=== PATIENT | male | born 1975 | race Caucasian/White ===

== ENCOUNTER → 2019-04-13 | Outpatient (CLI) | payer OTHER ==
[~2019-04-13] MED LIST: ACETAMINOPHEN500 MG PO; ARIP10 PO; ARIP30 PO; ASCO500 PO; ATOM25 PO; Augmentin 875-1 EACH PO; BENTYL; BENZ1 PO; CHLO100 PO; CHLO25A PO; CITA20 PO; CLIN300 PO; Celexa40 MG PO; Cipro500 MG PO; DIPH50; DIPH50 PO; ERGO50000 PO; FAMO40 PO; FERSU300 PO; Flagyl500 MG PO; GAVILAX17 GM PO; LORA.5 PO; OLAN10 PO; OXYACE5T PO; PERP8 PO; PRED20 PO; Percocet 5-3251 EACH PO; SERT100 PO; TAMS.4ER PO; [UNRECOGNIZED DRUG - OTHER]; [UNRECOGNIZED DRUG - OTHER] PO
[2019-04-13 20:50] LABS: U Amphetamine Screen Not Detected; U Barbituate Screen Not Detected; U Benzodiazapine Screen Not Detected; U Buprenorphine Screen Not Detected; U Cannabinoids Screen Not Detected; U Cocaine Screen Not Detected; U Methadone Screen Not Detected; U Methamphetamine Screen Not Detected; U Opiates Screen Not Detected; U Oxycodone Screen Not Detected; U Phencyclidine Screen Not Detected
[2019-04-13 20:51] LABS: U Propoxyphene Screen Not Detected
== END | disposition home or self-care (01) ==
LOC: LAB 13:50 → LAB SHORT 13:50
PROVIDERS: Registered Nurse Psychiatric/Mental Health
DX: Z51.81 Encounter for therapeutic drug level monitoring (principal); Z79.899 Other long term (current) drug therapy

== ENCOUNTER 2019-04-23 11:53 | Emergency (ER) | payer OTHER ==
[~2019-04-23] VITALS: Ht 182.9 cm; Wt 99.8 kg
[~2019-04-23 11:53] MED LIST changes: -ACETAMINOPHEN500 MG PO; -ASCO500 PO; -Augmentin 875-1 EACH PO; -Cipro500 MG PO; -ERGO50000 PO; -FAMO40 PO; -FERSU300 PO; -Flagyl500 MG PO; -GAVILAX17 GM PO; -PRED20 PO; -Percocet 5-3251 EACH PO; -TAMS.4ER PO
[2019-04-23 13:06] LABS: BASOPHILS ABSOLUTE AUTO 0.05 K/mm3 (0.00-0.23); BASOPHILS PERCENT AUTO 1 % (0-2); EOSINOPHILS ABSOLUTE AUTO 0.01 K/mm3 (0.00-0.68); EOSINOPHILS PERCENT AUTO 0 % (0-6); Hematocrit 40.9 % (37.0-53.0); Hemoglobin 13.9 g/dL (13.5-17.5); IMMATURE GRAN ABSOLUTE AUTO 0.06 K/mm3 (0.00-0.10); IMMATURE GRAN PERCENT AUTO 1 % (0-1); LYMPHOCYTES ABSOLUTE AUTO 1.05 K/mm3 (0.84-5.20); LYMPHOCYTES PERCENT AUTO 10 % (21-46); MONOCYTES ABSOLUTE AUTO 1.36 K/mm3 (0.16-1.47); MONOCYTES PERCENT AUTO 13 % (4-13); Mean Corpuscular HGB 29.8 pg (26.0-34.0); Mean Corpuscular Volume 88 fL (80-100); Mean Platelet Volume 9.5 fL (9.1-12.4); NEUTROPHILS ABSOLUTE AUTO 8.33 K/mm3 (1.96-9.15); NEUTROPHILS PERCENT AUTO 77 % (41-73); Platelet Count 319 K/mm3 (150-400); RDW Coefficient Variation 13.5 % (11.7-14.2); RDW Standard Deviation 43.8 fL (35.1-46.3); Red Blood Cell Count 4.66 M/mm3 (4.30-5.90); White Blood Cell Count 10.86 K/mm3 (4.00-11.30)
[2019-04-23 13:28] LABS: Alanine Aminotransfer (ALT/SGP 22 U/L (12-78); Albumin, Blood 3.3 g/dL (3.4-5.0); Albumin/Globulin Ratio 0.7 (0.8-1.8); Alk Phos 131 U/L (50-136); Anion Gap 10 mmol/L (6-16); Aspartate Aminotrans (AST/SGOT 19 U/L (12-37); Bilirubin, Total 0.4 mg/dL (0.1-1.0); Blood Urea Nitrogen 12 mg/dL (8-24); Bun/Creatinine Ratio 13.4 (12.0-20.0); CO2, Blood 21 mmol/L (21-32); Calcium, Blood 8.6 mg/dL (8.5-10.1); Chloride, Blood 102 mmol/L (98-108); Creatinine, Blood 0.89 mg/dL (0.60-1.20); Globulin, Blood 4.5 g/dL (2.2-4.0); Glomerular Filtration Rate >60 (60-); Glucose, Blood 105 mg/dL (70-99); Potassium, Blood 4.1 mmol/L (3.5-5.5); Sodium, Blood 133 mmol/L (136-145); Total Protein, Blood 7.8 g/dL (6.4-8.2)
[2019-04-23] MEDS ORDERED: SERT100 PO (14:03)
== END 2019-04-23 15:00 | disposition home or self-care (01) ==
LOC: ER 11:53
PROVIDERS: Emergency Medicine
DX: K59.00 Constipation, unspecified (principal); F32.9 Major depressive disorder, single episode, unspecified; F20.9 Schizophrenia, unspecified; Z88.1 Allergy status to other antibiotic agents; Z79.899 Other long term (current) drug therapy; Z87.891 Personal history of nicotine dependence
CPT/HCPCS: 36415; 74018; 80053; 83690; 85025; 99283-25

== ENCOUNTER 2019-05-02 14:00 | Emergency (ER) | payer OTHER ==
[~2019-05-02] VITALS: Ht 182.9 cm; Wt 99.8 kg
[2019-05-02 14:24] LABS: BASOPHILS ABSOLUTE AUTO 0.06 K/mm3 (0.00-0.23); BASOPHILS PERCENT AUTO 1 % (0-2); EOSINOPHILS ABSOLUTE AUTO 0.01 K/mm3 (0.00-0.68); EOSINOPHILS PERCENT AUTO 0 % (0-6); Hematocrit 36.8 % (37.0-53.0); Hemoglobin 12.4 g/dL (13.5-17.5); IMMATURE GRAN ABSOLUTE AUTO 0.06 K/mm3 (0.00-0.10); IMMATURE GRAN PERCENT AUTO 1 % (0-1); LYMPHOCYTES PERCENT AUTO 7 % (21-46); MONOCYTES ABSOLUTE AUTO 1.51 K/mm3 (0.16-1.47); MONOCYTES PERCENT AUTO 16 % (4-13); Mean Corpuscular HGB 29.3 pg (26.0-34.0); Mean Corpuscular HGB Conc 33.7 g/dL (31.5-36.5); Mean Corpuscular Volume 87 fL (80-100); Mean Platelet Volume 9.5 fL (9.1-12.4); NEUTROPHILS ABSOLUTE AUTO 7.37 K/mm3 (1.96-9.15); NEUTROPHILS PERCENT AUTO 76 % (41-73); Platelet Count 450 K/mm3 (150-400); RDW Coefficient Variation 13.8 % (11.7-14.2); RDW Standard Deviation 44.3 fL (35.1-46.3); Red Blood Cell Count 4.23 M/mm3 (4.30-5.90); White Blood Cell Count 9.71 K/mm3 (4.00-11.30)
[2019-05-02 14:38] LABS: International Normalized Ratio 1.19; Prothrombin Time Results 12.4 Sec (9.7-11.5)
[2019-05-02 14:43] LABS: Alanine Aminotransfer (ALT/SGP 128 U/L (12-78); Albumin, Blood 2.5 g/dL (3.4-5.0); Albumin/Globulin Ratio 0.5 (0.8-1.8); Alk Phos 120 U/L (50-136); Anion Gap 10 mmol/L (6-16); Aspartate Aminotrans (AST/SGOT 99 U/L (12-37); Bilirubin, Total 0.4 mg/dL (0.1-1.0); Blood Urea Nitrogen 11 mg/dL (8-24); Bun/Creatinine Ratio 13.6 (12.0-20.0); CO2, Blood 22 mmol/L (21-32); Calcium, Blood 8.5 mg/dL (8.5-10.1); Chloride, Blood 97 mmol/L (98-108); Creatinine, Blood 0.81 mg/dL (0.60-1.20); Globulin, Blood 4.8 g/dL (2.2-4.0); Glomerular Filtration Rate >60 (60-); Glucose, Blood 128 mg/dL (70-99); Magnesium, Blood 2.1 mg/dL (1.6-2.4); Potassium, Blood 3.7 mmol/L (3.5-5.5); Sodium, Blood 129 mmol/L (136-145); Total Protein, Blood 7.3 g/dL (6.4-8.2)
[2019-05-02] MEDS ORDERED: DIPH50 PO (14:57)
[2019-05-02 16:21] LABS: Source, Urine Clean Catch
[2019-05-02 16:29] LABS: Bilirubin, Urine Neg (Neg); Blood, Urine 1+ (Neg); Glucose Qualitative, Urine Neg (Neg); Ketones, Urine Neg (Neg); Leukocyte Esterase, Urine Neg (Neg); Nitrite, Urine Neg (Neg); Protein, Urine 2+ (Neg); Specific Gravity, Urine 1.005 (1.003-1.022); Urobilinogen, Urine 1+ (Normal); pH, Urine 6.5 (5.0-8.0)
[2019-05-02 16:35] LABS: Appearance, Urine Clear (Clear); Color, Urine Yellow (P-Yellow)
[2019-05-02 16:37] LABS: Bacteria Rare /hpf; Red Blood Cells, Urine Rare /hpf (0-2); Squamous Epithelial Cells Rare /hpf (Few); White Blood Cells, Urine Rare /hpf (0-5)
[2019-05-02 16:41] LABS: U Amphetamine Screen Not Detected; U Barbituate Screen Not Detected; U Benzodiazapine Screen Not Detected; U Buprenorphine Screen Not Detected; U Cannabinoids Screen Not Detected; U Cocaine Screen Not Detected; U Methadone Screen Not Detected; U Methamphetamine Screen Not Detected; U Opiates Screen Not Detected; U Oxycodone Screen Not Detected; U Phencyclidine Screen Not Detected; U Propoxyphene Screen Not Detected
[2019-05-02] MEDS ORDERED: Flagyl500 MG PO (16:44)
[2019-05-02] MEDS ORDERED: Cipro500 MG PO (16:44)
[2019-05-02] MEDS ORDERED: ACETAMINOPHEN500 MG PO (16:45)
[2019-05-02 18:52] LABS: Adenovirus F 40/41 Not Detected (NOT DETECT); Astrovirus Not Detected (NOT DETECT); Campylobacter Sp Not Detected (NOT DETECT); Cryptosporidium Not Detected (NOT DETECT); Cyclospora Cayetanensis Not Detected (NOT DETECT); E. Coli O157 Not Detected (NOT DETECT); Entamoeba Histolytica Not Detected (NOT DETECT); Enteroaggregative E. coli-EAEC Not Detected (NOT DETECT); Enteropathogenic E. coli-EPEC Not Detected (NOT DETECT); Enterotoxigenic E. coli-ETEC Not Detected (NOT DETECT); Giardia Lamblia Not Detected (NOT DETECT); Norovirus GI/GII Not Detected (NOT DETECT); Plesiomonas Shigelloides Not Detected (NOT DETECT); Rotavirus A Not Detected (NOT DETECT); Salmonella Sp Not Detected (NOT DETECT); Sapovirus Not Detected (NOT DETECT); Shiga Toxin-prod E. coli-STEC Not Detected (NOT DETECT); Shigella/Enteroin E. coli-EIEC Not Detected (NOT DETECT); Vibrio Cholerae Not Detected (NOT DETECT); Vibrio Sp Not Detected (NOT DETECT); Yersinia Enterocolitica Not Detected (NOT DETECT)
[2019-05-04 04:07] LABS: HBSAG SCREEN Negative (Negative); HEP A AB, IGM Negative (Negative); HEP B CORE AB, IGM Negative (Negative); HEP C VIRUS AB <0.1 (0.0-0.9)
== END 2019-05-02 16:57 | disposition home or self-care (01) ==
LOC: ER 14:00
PROVIDERS: Emergency Medicine; Physician Assistant
DX: K52.9 Noninfective gastroenteritis and colitis, unspecified (principal); R74.0 Nonspecific elevation of levels of transaminase and lactic acid dehydrogenase [LDH]; F32.9 Major depressive disorder, single episode, unspecified; F20.9 Schizophrenia, unspecified; Z79.899 Other long term (current) drug therapy; Z88.1 Allergy status to other antibiotic agents; Z87.891 Personal history of nicotine dependence
CPT/HCPCS: 0097U; 36415; 74177; 80053; 80074; 81001; 82272; 83735; 83993; 85025; 85610; 86850; 86900; 86901; 89055; 96360-59; 99284-25; A9270-GY; J7120; Q9967

== ENCOUNTER 2019-05-15 11:38 | Inpatient (IN) | payer OTHER ==
[~2019-05-15] VITALS: Ht 182.9 cm; Wt 92.1 kg
[~2019-05-15 11:38] MED LIST changes: +ACETAMINOPHEN500 MG PO; +Cipro500 MG PO; +Flagyl500 MG PO
[2019-05-15 12:52] LABS: Hematocrit 33.6 % (37.0-53.0); Mean Corpuscular HGB 28.4 pg (26.0-34.0); Mean Corpuscular HGB Conc 32.7 g/dL (31.5-36.5); Mean Corpuscular Volume 87 fL (80-100); Mean Platelet Volume 9.5 fL (9.1-12.4); Platelet Count 454 K/mm3 (150-400); RDW Coefficient Variation 14.2 % (11.7-14.2); RDW Standard Deviation 45.1 fL (35.1-46.3); Red Blood Cell Count 3.88 M/mm3 (4.30-5.90); White Blood Cell Count 8.89 K/mm3 (4.00-11.30)
[2019-05-15] MEDS ORDERED: Augmentin 875-1 EACH PO (13:00)
[2019-05-15 13:08] LABS: International Normalized Ratio 1.28; Prothrombin Time Results 13.5 Sec (9.7-11.5)
[2019-05-15 13:12] LABS: Alanine Aminotransfer (ALT/SGP 147 U/L (12-78); Albumin/Globulin Ratio 0.4 (0.8-1.8); Alk Phos 132 U/L (50-136); Anion Gap 13 mmol/L (6-16); Aspartate Aminotrans (AST/SGOT 56 U/L (12-37); Bilirubin, Total 0.5 mg/dL (0.1-1.0); Blood Urea Nitrogen 5 mg/dL (8-24); Bun/Creatinine Ratio 6.4 (12.0-20.0); CO2, Blood 21 mmol/L (21-32); Calcium, Blood 8.1 mg/dL (8.5-10.1); Chloride, Blood 95 mmol/L (98-108); Creatinine, Blood 0.78 mg/dL (0.60-1.20); Globulin, Blood 4.6 g/dL (2.2-4.0); Glomerular Filtration Rate >60 (60-); Glucose, Blood 107 mg/dL (70-99); Potassium, Blood 3.4 mmol/L (3.5-5.5); Sodium, Blood 129 mmol/L (136-145); Total Protein, Blood 6.6 g/dL (6.4-8.2)
[2019-05-15 13:23] LABS: BAND PERCENT MAN 24 % (0-8); BASOPHILS ABSOLUTE MAN 0.08 K/mm3 (0.00-0.23); BASOPHILS PERCENT MAN 1 % (0-2); EOSINOPHILS ABSOLUTE MAN 0.17 K/mm3 (0.00-0.68); EOSINOPHILS PERCENT MAN 2 % (0-6); LYMPHOCYTES ABSOLUTE MAN 0.71 K/mm3 (0.84-5.20); LYMPHOCYTES PERCENT MAN 8 % (21-46); MONOCYTES ABSOLUTE MAN 1.06 K/mm3 (0.16-1.47); MONOCYTES PERCENT MAN 12 % (4-13); MYELOCYTE ABSOLUTE MAN 0.08 K/mm3 (0.00-0.00); MYELOCYTE PERCENT MAN 1 % (0-0); NEUTROPHILS ABSOLUTE MAN 6.75 K/mm3 (1.96-9.15); SEG NEUTROPHILS PERCENT MAN 52 % (41-73); TOTAL CELLS COUNTED 100
[2019-05-15 14:28] LABS: Adenovirus F 40/41 Not Detected (NOT DETECT); Astrovirus Not Detected (NOT DETECT); Campylobacter Sp Not Detected (NOT DETECT); Cryptosporidium Not Detected (NOT DETECT); Cyclospora Cayetanensis Not Detected (NOT DETECT); E. Coli O157 Not Detected (NOT DETECT); Entamoeba Histolytica Not Detected (NOT DETECT); Enteroaggregative E. coli-EAEC Not Detected (NOT DETECT); Enteropathogenic E. coli-EPEC Not Detected (NOT DETECT); Enterotoxigenic E. coli-ETEC Not Detected (NOT DETECT); Giardia Lamblia Not Detected (NOT DETECT); Norovirus GI/GII Not Detected (NOT DETECT); Plesiomonas Shigelloides Not Detected (NOT DETECT); Rotavirus A Not Detected (NOT DETECT); Salmonella Sp Not Detected (NOT DETECT); Sapovirus Not Detected (NOT DETECT); Shiga Toxin-prod E. coli-STEC Not Detected (NOT DETECT); Shigella/Enteroin E. coli-EIEC Not Detected (NOT DETECT); Vibrio Cholerae Not Detected (NOT DETECT); Vibrio Sp Not Detected (NOT DETECT); Yersinia Enterocolitica Not Detected (NOT DETECT)
--- NOTE | 2019-05-15 18:48 | NUR ---
PT ARRIVAL... PT ARRIVED ON UNIT VIA GURNEY. PT'S VS STABLE. PT STATED HE COULD NOT WALK D/T "THE STOOL JUST COMING OUT." PT C/O OF 10/10 PAIN TO HIS RECTAL AREA. PT GOT UP TO THE BSC, LIGHT RED/PINKISH AREA NOTED IN THE PT'S ATTENDS. PT IS A&Ox4. PT'S MOM AT THE BEDSIDE. CALL LIGHT IN REACH, WILL CONTINUE TO MONITOR UNTIL REPORT IS GIVEN TO ONCOMING RN.
[2019-05-16 03:48] LABS: BASOPHILS ABSOLUTE AUTO 0.04 K/mm3 (0.00-0.23); BASOPHILS PERCENT AUTO 1 % (0-2); Hematocrit 26.7 % (37.0-53.0); Hemoglobin 8.4 g/dL (13.5-17.5); LYMPHOCYTES ABSOLUTE AUTO 0.82 K/mm3 (0.84-5.20); LYMPHOCYTES PERCENT AUTO 14 % (21-46); MONOCYTES ABSOLUTE AUTO 0.85 K/mm3 (0.16-1.47); MONOCYTES PERCENT AUTO 14 % (4-13); Mean Corpuscular HGB Conc 31.5 g/dL (31.5-36.5); Mean Corpuscular Volume 89 fL (80-100); Platelet Count 334 K/mm3 (150-400); RDW Coefficient Variation 14.6 % (11.7-14.2); RDW Standard Deviation 47.2 fL (35.1-46.3); White Blood Cell Count 6.02 K/mm3 (4.00-11.30)
[2019-05-16 03:50] LABS: EOSINOPHILS ABSOLUTE AUTO 0.17 K/mm3 (0.00-0.68); EOSINOPHILS PERCENT AUTO 3 % (0-6); IMMATURE GRAN ABSOLUTE AUTO 0.06 K/mm3 (0.00-0.10); IMMATURE GRAN PERCENT AUTO 1 % (0-1); NEUTROPHILS ABSOLUTE AUTO 4.08 K/mm3 (1.96-9.15); NEUTROPHILS PERCENT AUTO 68 % (41-73)
[2019-05-16 04:08] LABS: Alanine Aminotransfer (ALT/SGP 103 U/L (12-78); Albumin, Blood 1.8 g/dL (3.4-5.0); Albumin/Globulin Ratio 0.5 (0.8-1.8); Alk Phos 89 U/L (50-136); Anion Gap 9 mmol/L (6-16); Aspartate Aminotrans (AST/SGOT 48 U/L (12-37); Bilirubin, Total 0.6 mg/dL (0.1-1.0); Blood Urea Nitrogen 4 mg/dL (8-24); Bun/Creatinine Ratio 5.8 (12.0-20.0); CO2, Blood 20 mmol/L (21-32); Calcium, Blood 7.7 mg/dL (8.5-10.1); Chloride, Blood 107 mmol/L (98-108); Globulin, Blood 3.6 g/dL (2.2-4.0); Glomerular Filtration Rate >60 (60-); Glucose, Blood 87 mg/dL (70-99); Potassium, Blood 3.6 mmol/L (3.5-5.5); Sodium, Blood 136 mmol/L (136-145); Total Protein, Blood 5.4 g/dL (6.4-8.2)
[2019-05-16 05:25] LABS: BAND PERCENT MAN 11 % (0-8); BASOPHILS ABSOLUTE MAN 0.06 K/mm3 (0.00-0.23); BASOPHILS PERCENT MAN 1 % (0-2); EOSINOPHILS ABSOLUTE MAN 0.06 K/mm3 (0.00-0.68); EOSINOPHILS PERCENT MAN 1 % (0-6); LYMPHOCYTES ABSOLUTE MAN 0.72 K/mm3 (0.84-5.20); LYMPHOCYTES PERCENT MAN 12 % (21-46); MONOCYTES ABSOLUTE MAN 0.72 K/mm3 (0.16-1.47); MONOCYTES PERCENT MAN 12 % (4-13); MYELOCYTE ABSOLUTE MAN 0.06 K/mm3 (0.00-0.00); MYELOCYTE PERCENT MAN 1 % (0-0); NEUTROPHILS ABSOLUTE MAN 4.39 K/mm3 (1.96-9.15); SEG NEUTROPHILS PERCENT MAN 62 % (41-73); TOTAL CELLS COUNTED 100
--- NOTE | 2019-05-16 06:00 | NUR ---
ASSUMED CARE AT 0100. SEE GENERAL ASSESSMENT REVIEW. DOZING AT SHORT INTERNALS WHEN LEFT UNDISTURBED.LIQUID PINK BROWN INCONTINENT STOOL IN ATTENDS FREQ. NPO SINCE 0100. VERY EXCORIATED ANAL AREA AND TRIED TO LOCATE AREA OF ABCESS TO TAKE A PHOTO W/ CAUSING TOO MUCH PAIN AND UNSUCCESSFUL.. PROTECTIVE UNGT TO ANAL AREA , AFTER ATTEMPT TO PUT IN RECTAL TUBE ..TUBE IN PLACE BUT PT COULD NOT TOLERATE THE APPLIANCE ON EXCORIATED SKIN , RECTAL TUBE NEVER INFLATED AND REMOVED IMMEDIATELY DUE TO PAIN. IV MED FOR PAIN AND TOOK AWHILE TO GET RELIEF. GOLYTLY STARTED AT 0500 AND DRINKING W/O ANY DIFFICULTY.
[2019-05-16 10:49] LABS: Hematocrit 26.9 % (37.0-53.0); Hemoglobin 8.6 g/dL (13.5-17.5)
--- NOTE | 2019-05-16 20:00 | NUR ---
ASSUMPTION OF CARE: PT A & O. FEBRILE WITH TEMP 101.5. SBP STABLE IN THE 110S, HR IN THE 90S. LUNG SOUNDS CLEAR. BT HYPERACTIVE X 4. PT COMPLAINS OF FREQUENT DIARRHEA THAT IS OCC BLOODY. REPORTED ABSCESS OVER COCCYX THAT IS DRAINING SEROSANGUINEOUS FLUID. PT POSS SCHEDULED FOR COLONOSCOPY IN THE AM. PT DOES COMPLAIN OF SOME PAIN. 20G IV IN L HAND PATENT AND SL. BED IN LOWEST POSITION, CALL LIGHT IN REACH. WILL CONTINUE TO MONITOR.
--- NOTE | 2019-05-16 20:06 | NUR ---
REPORT REC'D FROM MAYDA HERNANDEZ. VSS. ASSESSMENT NOTED. PREP COMPLETE. PT UP TO BSC FREQ WITH GREENISH CLEAR LIQ DIARRHEA. BRIEF IN PLACE, DOUBLE PADS ON BED, PAD UNDER BSC. ITEMS THAT WOULD GET IN THE WAY OF USING BSC REMOVED I.E. GOWN, TELE DISCONNECTED ETC. PT VERY COOP AND KIND T/O SHIFT. PLEASANT TO WORK WITH. PROC DELAYED FROM 0900 TO 1500 WHICH RESULTED IN UNSUCCESSFUL SCOPE. DR CATALAN WILL TRY AGAIN TOMORROW TO SCOPE CLOSER TO THE TIME PREP WAS COMPLETED. PT ON CLEAR LIQ FROM TIME BACK TO ROOM AT 1600 UNTIL 1030 IN THE AM. 1/2 GAL PREP AT 1030 UNTIL NOON THEN NPO FOR PROCEDURE AT 1500. PT STILL NEEDS TO HAVE TUNNELING WOUND ABOVE RECTUM EVAULATED BY SURG POSS AFTER GI FINDINGS. REPORT GIVEN TO DARYL HERNANDEZ. CALL LIGHT IN REACH.
[2019-05-16 21:59] LABS: Hematocrit 27.9 % (37.0-53.0); Hemoglobin 9.1 g/dL (13.5-17.5)
--- NOTE | 2019-05-16 23:44 | NUR ---
ZOSYN DUE AT 1600 HOWEVER WAS STARTED AT 1999. OK TO GIVE 0000 DOSE OF ZOSYN PER PHARMACY.
[2019-05-17 04:07] LABS: BASOPHILS ABSOLUTE AUTO 0.04 K/mm3 (0.00-0.23); BASOPHILS PERCENT AUTO 1 % (0-2); EOSINOPHILS PERCENT AUTO 2 % (0-6); Hematocrit 26.2 % (37.0-53.0); Hemoglobin 8.4 g/dL (13.5-17.5); IMMATURE GRAN ABSOLUTE AUTO 0.07 K/mm3 (0.00-0.10); IMMATURE GRAN PERCENT AUTO 1 % (0-1); LYMPHOCYTES PERCENT AUTO 12 % (21-46); MONOCYTES PERCENT AUTO 14 % (4-13); Mean Corpuscular HGB 28.5 pg (26.0-34.0); Mean Corpuscular HGB Conc 32.1 g/dL (31.5-36.5); Mean Corpuscular Volume 89 fL (80-100); Mean Platelet Volume 9.1 fL (9.1-12.4); NEUTROPHILS ABSOLUTE AUTO 4.69 K/mm3 (1.96-9.15); NEUTROPHILS PERCENT AUTO 71 % (41-73); Platelet Count 359 K/mm3 (150-400); RDW Coefficient Variation 14.6 % (11.7-14.2); RDW Standard Deviation 47.9 fL (35.1-46.3); Red Blood Cell Count 2.95 M/mm3 (4.30-5.90)
[2019-05-17 04:27] LABS: Alanine Aminotransfer (ALT/SGP 115 U/L (12-78); Albumin, Blood 1.8 g/dL (3.4-5.0); Albumin/Globulin Ratio 0.5 (0.8-1.8); Alk Phos 91 U/L (50-136); Anion Gap 7 mmol/L (6-16); Aspartate Aminotrans (AST/SGOT 57 U/L (12-37); Bilirubin, Total 0.5 mg/dL (0.1-1.0); Blood Urea Nitrogen 2 mg/dL (8-24); Bun/Creatinine Ratio 2.6 (12.0-20.0); CO2, Blood 25 mmol/L (21-32); Calcium, Blood 7.5 mg/dL (8.5-10.1); Chloride, Blood 104 mmol/L (98-108); Creatinine, Blood 0.76 mg/dL (0.60-1.20); Globulin, Blood 3.4 g/dL (2.2-4.0); Glomerular Filtration Rate >60 (60-); Glucose, Blood 107 mg/dL (70-99); Sodium, Blood 136 mmol/L (136-145); Total Protein, Blood 5.2 g/dL (6.4-8.2)
--- NOTE | 2019-05-17 05:27 | NUR ---
SHIFT SUMMARY: PT A&O, AWAKE THROUGHOUT SHIFT. FEBRILE AT 100.0. SBP AND PULSE STABLE. LUNG SOUNDS CLEAR. PT IS ABLE TO VOID INTO COMMODE. BT HYPERACTIVE. IS WEARING A DEPENDS AND IS ABLE TO USE COMMODE FOR BMS, HOWEVER OCC WONT MAKE IT COMPLETELY TO COMMODE. OCC BLOODY STOOL. 20G IN L WRIST PATENT AND SL. PT CURRENTLY IN BED RESTING COMFORTABLY. BED IN LOWEST POSITION, CALL LIGHT IN REACH. WILL GIVE REPORT TO NEXT SHIFT
--- NOTE | 2019-05-17 07:19 | NUR ---
ASSUMED CARE: PT RESTING IN BED AT THIS TIME. DENIES NEEDS OR CONCERNS AT THIS TIME.
[2019-05-17 09:21] LABS: Vancomycin, Trough 6.5 ug/mL (5.0-10.0)
--- NOTE | 2019-05-17 13:40 | NUR ---
PT TAKEN TO DAY SURGERY BY ERMELINDA HERNANDEZ VIA NATY. PT'S MOTHER AWARE AND ACCOMPANYING.
--- NOTE | 2019-05-17 14:03 | NUR ---
PT INTO SDS VIA NAT[facility]. PT NPO SINCE 1129. LUNGS CTA. VSS. FAMILY AT BEDSIDE.
--- NOTE | 2019-05-17 14:38 | NUR ---
05/17/19 1438 RAE PRITCHARD History, Chart, Medications and Allergies reviewed before start of procedure.MONITOR INTACT WITH CONTINUOUS PULSE OXIMETRY AND INTERMITTENT BP.History, Chart, Medications and Allergies reviewed before start of procedure.3-LEAD EKG REVIEWED WITH PHYSICIAN PRIOR TO START OF PROCEDURE.O2 VIA N/C INTACT THROUGHOUT SEDATION/PROCEDURE. PATIENT DETERMINED TO BE ASA APPROPRIATE FOR PROPOFOL SEDATION PRIOR TO START OF PROCEDURE BY DR. CATALAN.
[2019-05-17 16:47] LABS: C-REACTIVE PROTEIN, EXT RANGE 16.4 mg/dL (0.000-0.300); Magnesium, Blood 1.9 mg/dL (1.6-2.4)
[2019-05-17 17:20] LABS: Percent Saturation 7.5 % (20.0-50.0)
[2019-05-17 18:08] LABS: Hematocrit 27.9 % (37.0-53.0)
--- NOTE | 2019-05-17 18:30 | NUR ---
REPORT GIVEN TO AVIS HERNANDEZ. PT TRANSFERRED VIA WHEEL CHAIR BY HAND DEVELOPER. NO ACUTE NEEDS OR CONCERNS.
--- NOTE | 2019-05-17 18:56 | NUR ---
PT RECENTLY TO ROOM 218 AFTER THIS RN GIVEN REPORT, HS RN GIVEN REPORT.
[2019-05-18 09:25] LABS: Hematocrit 29.5 % (37.0-53.0); Hemoglobin 9.2 g/dL (13.5-17.5); Mean Corpuscular HGB Conc 31.2 g/dL (31.5-36.5); Mean Corpuscular Volume 90 fL (80-100); Mean Platelet Volume 9.2 fL (9.1-12.4); Platelet Count 359 K/mm3 (150-400); RDW Coefficient Variation 14.7 % (11.7-14.2); RDW Standard Deviation 48.5 fL (35.1-46.3); Red Blood Cell Count 3.28 M/mm3 (4.30-5.90)
[2019-05-18 09:47] LABS: BAND PERCENT MAN 1 % (0-8); BASOPHILS ABSOLUTE MAN 0.05 K/mm3 (0.00-0.23); BASOPHILS PERCENT MAN 1 % (0-2); EOSINOPHILS ABSOLUTE MAN 0.11 K/mm3 (0.00-0.68); EOSINOPHILS PERCENT MAN 2 % (0-6); LYMPHOCYTES ABSOLUTE MAN 0.53 K/mm3 (0.84-5.20); LYMPHOCYTES PERCENT MAN 9 % (21-46); METAMYELOCYTE ABSOLUTE MAN 0.05 K/mm3 (0.00-0.00); METAMYELOCYTE PERCENT MAN 1 % (0-0); MONOCYTES ABSOLUTE MAN 0.47 K/mm3 (0.16-1.47); MONOCYTES PERCENT MAN 8 % (4-13); NEUTROPHILS ABSOLUTE MAN 4.66 K/mm3 (1.96-9.15); SEG NEUTROPHILS PERCENT MAN 78 % (41-73); TOTAL CELLS COUNTED 100
[2019-05-18 09:48] LABS: Albumin, Blood 1.8 g/dL (3.4-5.0); Albumin/Globulin Ratio 0.5 (0.8-1.8); Bilirubin, Total 0.4 mg/dL (0.1-1.0); Bun/Creatinine Ratio 3.2 (12.0-20.0); Calcium, Blood 7.8 mg/dL (8.5-10.1); Creatinine, Blood 1.9 mg/dL (0.60-1.20); Globulin, Blood 3.9 g/dL (2.2-4.0); Potassium, Blood 3.3 mmol/L (3.5-5.5); Total Protein, Blood 5.7 g/dL (6.4-8.2)
[2019-05-18 11:45] LABS: Antinuclear Antibody Screen Negative (Negative)
[2019-05-18 13:07] LABS: FINAL INTERPRETATION Negative (.); HIV 1 AB Negative (Negative); HIV 2 AB Negative (Negative)
--- NOTE | 2019-05-18 18:01 | NUR ---
SUMMARY PATIENT REPORTS HAVING SOME LIQUID BROWN STOOLS BUT THAT FREQUENCY HAS DECREASED DRAMATICALLY SINCE 05/17/18. PATIENT MEDICATED FOR 7-8 ABD PAIN X2 WITH PAIN DECREASING TO LEVEL 2.
[2019-05-19 01:06] LABS: HBSAG SCREEN Negative (Negative); HCV ANTIBODY <0.1 (0.0-0.9); HEP B CORE AB, TOT Negative (Negative)
--- NOTE | 2019-05-19 04:52 | NUR ---
SHIFT SUMMARY AA0X4, VSS. PT REPORTS STILL HAVING LOOSE STOOLS BUT REPORTED BETTER CONTROL TODAY. PT HAS BEEN IND IN ROOM, UP TO VOID. PT RESTING IN BED DURING MOST OF SHIFT. DENIES PAIN WHEN ASKED. ENCOURAGED PATIENT TO CALL FOR PAIN MEDICATION WHEN HIS PAIN BEGINS TO CLIMB. TOLERATING PO FLUIDS. DENIED TENDERNESS ON PALPATION.
[2019-05-19 10:06] LABS: EBV AB VCA, IGG 69.1 U/mL (0.0-17.9); EBV AB VCA, IGM <36.0 U/mL (0.0-35.9); EBV NUCLEAR ANTIGEN AB, IGG 35.1 U/mL (0.0-17.9)
--- NOTE | 2019-05-19 18:16 | NUR ---
SHIFT SUMMARY PT HAS BEEN INDEPENDENT IN HIS ROOM THIS SHIFT. PT IS TOLERATING FOOD AND FLUIDS. PT REPORTED SOME MILD NAUSEA THIS SHIFT. PAIN HAS BEEN MANAGED WITH PO PAIN MEDICATION.
--- NOTE | 2019-05-20 05:05 | NUR ---
SHIFT SUMMARY PT AAOX4, VSS. PT UP AND VOIDING, STATED THAT STOOLS ARE FEELING A LITTLE MORE SOLID. STILL HAVING ABDOMINAL PAIN MEDICATED PER EMAR. STILL HAVING URGENCY ISSUES WITH STOOL. VOIDING WELL AND TOLERATING PO, DENIED NAUSEA TONIGHT. PT RESTING IN BED DURING SHIFT.
[2019-05-20 05:10] LABS: Albumin, Blood 1.9 g/dL (3.4-5.0); Anion Gap 6 mmol/L (6-16); Blood Urea Nitrogen 20 mg/dL (8-24); Bun/Creatinine Ratio 8.3 (12.0-20.0); CO2, Blood 24 mmol/L (21-32); Chloride, Blood 112 mmol/L (98-108); Creatinine, Blood 2.42 mg/dL (0.60-1.20); Glomerular Filtration Rate 31 (60-); Glucose, Blood 129 mg/dL (70-99); Phosphorus, Blood 4.6 mg/dL (2.5-4.9); Potassium, Blood 4.2 mmol/L (3.5-5.5); Sodium, Blood 142 mmol/L (136-145)
--- NOTE | 2019-05-20 07:45 | NUR ---
KIDNEY FUNCTION CALL PLACED TO DR. CORONEL REGARDING INCREASED CREATININE AND DECREASED GFR. PT HAS ALSO HAD DECREASED URINE OUTPUT OF APPROXIMATELY 150ML OVERNIGHT. POST VOID RESIDUAL SHOWED >261ML IN BLADDER THIS MORNING. DR. CORONEL NOTIFIED REGARDING CHANGE FROM NORMAL KIDNEY FUNCTION TO DECREASED FUNCTION. SHE WAS ALSO NOTIFIED OF DECREASED URINE OUTPUT AND BLADDER VOLUME. AWAITING ORDERS. WILL CONTINUE TO MONITOR.
--- NOTE | 2019-05-20 11:33 | NUR ---
CATHETER CATHETER WAS PLACED TEMPORARILY TO EMPTY PT'S BLADDER. DR. CORONEL REQUESTED THAT IT BE REMOVED SINCE PT IS ABLE TO VOID SMALL AMOUNTS. CATHETER EMPTIED 400ML OUT OF PT'S BLADDER AND WAS REMOVED IMMEDIATELY. PT REPORTS HE HAS SCARING IN HIS URETHRA. PT REQUIRED AN 8FR CATHETER. CATHETER WAS DIFFICULT TO PLACE BUT WAS SUCCESSFUL.
[2019-05-20 18:06] LABS: QUANTIFERON MITOGEN VALUE 1.87 IU/mL (.); QUANTIFERON NIL VALUE 0.02 IU/mL (.); QUANTIFERON TB1 AG VALUE 0.02 IU/mL (.); QUANTIFERON TB2 AG VALUE 0.02 IU/mL (.); QUANTIFERON-TB GOLD PLUS Negative (Negative)
--- NOTE | 2019-05-20 18:11 | NUR ---
SHIFT SUMMARY PT HAS CONTINUED TO HAVE ABD PAIN AND DISTENTION THIS SHIFT; PAIN HAS BEEN MANAGED WITH PO PAIN MEDICATION. HE CONTINUES TO HAVE FREQUENT UNFORMED STOOLS AND IS INCONTINENT AT TIMES. PT IS ABLE TO VOID, HOWEVER HE IS UNABLE TO FULLY EMPTY HIS BLADDER. HE REPORTS STRAINING TO VOID AND ONLY EMPTYING SMALL AMOUNTS. PT AGAIN ENCOURAGED TO USE THE URINAL SO VOIDS CAN BE MEASURED. PT HAS BEEN INDEPENDENT IN THE ROOM THIS SHIFT. VSS. WILL MONITOR UNTIL REPORT TO ONCOMING RN.
--- NOTE | 2019-05-21 06:25 | NUR ---
05/21/19 0625 Clark Barrios History, Chart, Medications and Allergies reviewed before start of procedure.MONITOR INTACT WITH CONTINUOUS PULSE OXIMETRY AND INTERMITTENT BP.3-LEAD EKG REVIEWED WITH PHYSICIAN PRIOR TO START OF PROCEDURE.O2 VIA N/C INTACT THROUGHOUT SEDATION/PROCEDURE. Patient confirms NPO status and agrees with scheduled surgery.PATIENT DETERMINED TO BE ASA APPROPRIATE FOR PROPOFOL SEDATION PRIOR TO START OF PROCEDURE BY DR. CATALAN.
--- NOTE | 2019-05-21 06:28 | NUR ---
PT VSS T/O NIGHT. PT REP NO CHANGE IN ABD DISTENTION, REP STOOL BECOMING MORE FORMED, PT DENIED BLOODY STOOL, IS PASSING FLATUS. PT CONT TO C/O ABD CRAMPING, PAIN MGD PER EMAR. PT VOIDING CLEAR YELLOW URINE, REP VOIDING AT BASELINE. PT ENC TO USE URINAL TO MEASURE VOIDS, REP DIFFICULTY R/T FREQ BM'S. PT CONT TO REP AUDIBLE HALLUCINATIONS, IS CALM AND COOPERATIVE W/CARE, REFUSED SCHEDULED THORAZINE. PT INDEP IN ROOM, IS USING CALL LIGHT FOR ASSISTANCE, WILL CONT TO MONITOR UNTIL REP GIVEN TO ONCOMING RN.
--- NOTE | 2019-05-21 07:46 | NUR ---
DR CATALAN HERE TO SEE PT.
[2019-05-21 08:41] LABS: Anion Gap 6 mmol/L (6-16); Blood Urea Nitrogen 27 mg/dL (8-24); Bun/Creatinine Ratio 11.6 (12.0-20.0); CO2, Blood 23 mmol/L (21-32); Calcium, Blood 8.2 mg/dL (8.5-10.1); Chloride, Blood 112 mmol/L (98-108); Creatinine, Blood 2.33 mg/dL (0.60-1.20); Glomerular Filtration Rate 33 (60-); Glucose, Blood 99 mg/dL (70-99); Phosphorus, Blood 3.7 mg/dL (2.5-4.9); Potassium, Blood 4.4 mmol/L (3.5-5.5); Sodium, Blood 141 mmol/L (136-145)
--- NOTE | 2019-05-21 17:26 | NUR ---
SHIFT SUMMARY PT BEEN ASSISTED WITH ADL'S PRN. PT UP IND TO BATHROOM. PT REPORTS VOIDING AND HAVING MULT BM'S. PT BEEN MED PRN FOR PAIN. FAMILY IN ROOM EARLIER TODAY. PO INTAKE BEEN ENC T/O DAY.
--- NOTE | 2019-05-21 19:00 | NUR ---
recvd report from previous shift saul bucio, pt sleeping in room, bed in lowest position, bed rails up x 2, call light within reach
--- NOTE | 2019-05-21 21:04 | NUR ---
STUDENT PERMISSION OBTAINED FROM PT TO ASSIST IN PROVIDING CARE ON 05/22 IN AM.
[2019-05-22 04:32] LABS: Albumin, Blood 1.9 g/dL (3.4-5.0); Anion Gap 6 mmol/L (6-16); Blood Urea Nitrogen 33 mg/dL (8-24); Bun/Creatinine Ratio 15.2 (12.0-20.0); CO2, Blood 24 mmol/L (21-32); Chloride, Blood 112 mmol/L (98-108); Creatinine, Blood 2.17 mg/dL (0.60-1.20); Glomerular Filtration Rate 36 (60-); Glucose, Blood 127 mg/dL (70-99); Phosphorus, Blood 3.3 mg/dL (2.5-4.9); Sodium, Blood 142 mmol/L (136-145)
--- NOTE | 2019-05-22 06:06 | NUR ---
SHIFT SUMMARY AA0X4 VSS. PT MEDICATED FOR PAIN X1 DURING SHIFT. STILL REPORTING LOOSE BM'S. PT HAS BEEN IND IN ROOM AND REPORTS VOIDING. IV FLUIDS INFUSING DURING SHIFT. AND PT HAS BEEN RESTING IN BED WITH EYES CLOSED. TOLERATING PO FLUIDS.
--- NOTE | 2019-05-22 07:37 | NUR ---
IMAGING REPORTS MRE NOT DONE AT THIS FACILITY, DR CATALAN NOTIFIED, REPORTS TO CANCEL ORDER.
--- NOTE | 2019-05-22 12:58 | NUR ---
DISCUSSED PT'S STATUS WITH DR DON.
--- NOTE | 2019-05-22 13:46 | NUR ---
PT REQ TO HAVE IRON PILL AT DINNER TIME.
--- NOTE | 2019-05-22 16:49 | NUR ---
DR CATALAN HERE TO SEE PT.
--- NOTE | 2019-05-22 17:06 | NUR ---
SHIFT SUMMARY PT EATING AND DRINKING, REPORTS VOIDING AND HAVING DIARRHEA. PT BEEN ASSISTED WITH ADL'S PRN. CORY JACKSON TO SEE PT TODAY. PT BEEN ENC TO AMBULATE. PT USING CALL LIGHT APPR.
[2019-05-23 04:37] LABS: Albumin, Blood 2.2 g/dL (3.4-5.0); Anion Gap 6 mmol/L (6-16); Blood Urea Nitrogen 35 mg/dL (8-24); Bun/Creatinine Ratio 16.6 (12.0-20.0); CO2, Blood 25 mmol/L (21-32); Calcium, Blood 8.4 mg/dL (8.5-10.1); Chloride, Blood 109 mmol/L (98-108); Creatinine, Blood 2.11 mg/dL (0.60-1.20); Glomerular Filtration Rate 37 (60-); Glucose, Blood 125 mg/dL (70-99); Phosphorus, Blood 4.1 mg/dL (2.5-4.9); Potassium, Blood 5.1 mmol/L (3.5-5.5); Sodium, Blood 140 mmol/L (136-145)
--- NOTE | 2019-05-23 07:10 | NUR ---
SHIFT SUMMARY: LYNSEY RESTED COMFORTABLY FOR SEVERAL HOURS DURING THE NIGHT. HE REPORTS PAIN IN HAS ABDOMEN FOR WHICH HE STATES THE ORAL PAIN MEDICATION IS EFFECTIVE. HE IS TOLERATING A REGULAR DIET WELL. HE DENIES ANY DIFFICULTY URINATING, NAUSEA OR VOMITING. HE IS INDEPENDENT IN THE ROOM. HE REPORTS THAT HE IS HAVING 7 TO 8 BOWEL MOVEMENTS A DAY AND THAT HIS BASELINE IS 7 BMs PER DAY. HE REPORTS THAT THEY HAVE BEEN MORE LIQUID THAN USUAL. HE USES HIS CALL LIGHT APPROPRIATELY. HE IS LYING IN BED WITH HIS EYES CLOSED WITH EVEN, UNLABORED RESPIRATIONS.
--- NOTE | 2019-05-23 11:26 | NUR ---
BENADRYL PATIENT REQUESTING BENADRYL 200 MG STATES IT HELPS DECREASE HIS ANXIETY. DISCUSSED WITH PATIENT THE ORDERED DOSE OF BENADRLY AND PATIENT DECLINES A DOSE AT THIS TIME. PATIENT REQUESTS DR DON BE CONTACTEDANDTHAT HE WISHES TO SPEAK WITH HER. SPOKE WITH DR DON WHO WILL RETURN TO VISIT PATIENT. UPDATED PATIENT THAT DR DON WILL RETURN VISIT HIM TODAY AT APPROXIMENTLY NOON
--- NOTE | 2019-05-23 17:39 | NUR ---
summary PATIENT REPORTS STOOLS THIS SIFT HAVE BEEN BROWN AND SEMI FORMED. ABD PAIN CONTROLLED WITH PO MEDS. PT REQUESTED BENADRYL AND THORAZINE REQUESTED DUE TO ANXIETY. PT DENIES ANY HALLUCINATIONS OR VISUAL DISTURBANCES. PATIENT IS HOPEFUL HE CAN BE DISCHARGED TOMORROW
--- NOTE | 2019-05-24 04:10 | NUR ---
SHIFT SUMMARY AA0X4 VSS. PATIENT REPORTS 7 SOFT BROWN BM'S DURING SHIFT. HE REPORTS FEELING LESS PAIN AND AN IMPROVEMENT IN HIS STOOL CONSISTENCY, DENIES BLOOD IN STOOL. MEDICATED FOR PAIN X1 DURING SHIFT. HE HAS BEEN TOLERATING PO WELL. HAS BEEN IND IN ROOM. REPORTS 2 UNMEASURED VOIDS. DENIES ANY HALLUCINATIONS OR VOICES HEARD DURING SHIFT.
--- NOTE | 2019-05-24 08:41 | NUR ---
C/O HAVING "ACID REFLUX" THIS AM, DENIES HAVING FREQUENT LOOSE STOOLS, ENCOURAGED OOB, CONT. TO MONITOR FOR ANY CHANGES.
[2019-05-24 10:04] LABS: Albumin, Blood 2.3 g/dL (3.4-5.0); Anion Gap 6 mmol/L (6-16); Blood Urea Nitrogen 34 mg/dL (8-24); Bun/Creatinine Ratio 16.1 (12.0-20.0); CO2, Blood 25 mmol/L (21-32); Calcium, Blood 8.1 mg/dL (8.5-10.1); Chloride, Blood 108 mmol/L (98-108); Creatinine, Blood 2.11 mg/dL (0.60-1.20); Glomerular Filtration Rate 37 (60-); Glucose, Blood 100 mg/dL (70-99); Phosphorus, Blood 3.5 mg/dL (2.5-4.9); Potassium, Blood 4.7 mmol/L (3.5-5.5); Sodium, Blood 139 mmol/L (136-145)
--- NOTE | 2019-05-24 11:42 | NUR ---
DR. CORONEL IN TO SEE PT AT THIS TIME
--- NOTE | 2019-05-24 14:08 | NUR ---
DR. MAYUFF IN TO SEE PT AT THIS TIME
--- NOTE | 2019-05-24 18:00 | NUR ---
SHIFT SUMMARY A/O W/VSS AND IND IN ROOM. AMBULATED IN HALLWAY SEVERAL TIMES T/O SHIFT. PAIN AT TOLERABLE LEVEL WITH PO MEDICATION. TOLERATING REGULAR DIET. DR. REID AND ALAYNA IN TO SEE PT THIS AFTERNOON, SEE EMAR FOR CHANGES. PATIENT EAGER TO GO HOME. STATES BM'S ARE MORE SOLID TODAY. PLAN FOR TENATIVE D/C TOMORROW. PATIENT CURRENTLY RESTING IN BED TALKING ON PHONE WITH CALL LIGHT IN REACH. WILL CONT. TO MONITOR AND GIVE REPORT TO ONCOMING RN.
--- NOTE | 2019-05-25 04:10 | NUR ---
SHIFT SUMMARY PT AA0X4,VSS. PT REPORTS ABDOMEN STILL PAINFUL, NEEDING MEDICATED PER EMAR FOR PAIN DURING NIGHT. PT TOLERATING PO WELL, APPETITE APPEARS GOOD. PT REPORTS STILL HAVING MULTIPLE PAINFUL STOOLS. SOFT/BROWN. DENIES BLOOD. PT IND IN ROOM, CALLS APRROPRIATLY. SALINE LOCKED DURING SHIFT.
[2019-05-25 04:53] LABS: Albumin, Blood 2.2 g/dL (3.4-5.0); Anion Gap 7 mmol/L (6-16); Blood Urea Nitrogen 39 mg/dL (8-24); Bun/Creatinine Ratio 19.5 (12.0-20.0); CO2, Blood 25 mmol/L (21-32); Calcium, Blood 8.3 mg/dL (8.5-10.1); Chloride, Blood 103 mmol/L (98-108); Glomerular Filtration Rate 39 (60-); Glucose, Blood 147 mg/dL (70-99); Phosphorus, Blood 3.7 mg/dL (2.5-4.9); Potassium, Blood 4.7 mmol/L (3.5-5.5); Sodium, Blood 135 mmol/L (136-145)
[2019-05-25] MEDS ORDERED: Percocet 5-3251 EACH PO (10:13)
[2019-05-25] MEDS ORDERED: FAMO40 PO (10:24)
[2019-05-25] MEDS ORDERED: FERSU300 PO (10:25)
[2019-05-25] MEDS ORDERED: PRED20 PO (10:25)
[2019-05-25] MEDS ORDERED: TAMS.4ER PO (10:25)
[2019-05-25] MEDS ORDERED: ERGO50000 PO (10:32)
[2019-05-25] MEDS ORDERED: ASCO500 PO (10:35)
[2019-05-25] MEDS ORDERED: GAVILAX17 GM PO (10:36)
--- NOTE | 2019-05-25 11:53 | NUR ---
5504 discharge discharge to home with his mother. discharge meds faxed to [facility] per patient request
== END 2019-05-25 11:07 | disposition home or self-care (01) | DRG 872 ==
LOC: ER 11:38 → SURS 16:45 → PCU 16:45 → ER 18:27 → PCU 18:50 → SURS 05-17 18:49
PROVIDERS: Hospitalist; Internal Medicine; Internal Medicine Gastroenterology; Nurse Practitioner Acute Care; Physician Assistant; ADMIT Internal Medicine
PROC: 0DJD8ZZ Inspection of Lower Intestinal Tract, Via Natural or Artificial Opening Endoscopic (ICD-10-PCS; principal; 2019-05-16 15:00)
PROC: 0DBH8ZX Excision of Cecum, Via Natural or Artificial Opening Endoscopic, Diagnostic (ICD-10-PCS; 2019-05-17)
PROC: 0DBE8ZX Excision of Large Intestine, Via Natural or Artificial Opening Endoscopic, Diagnostic (ICD-10-PCS; 2019-05-17)
DX: A41.9 Sepsis, unspecified organism (principal); K50.10 Crohn's disease of large intestine without complications; L02.31 Cutaneous abscess of buttock; K62.6 Ulcer of anus and rectum; N17.9 Acute kidney failure, unspecified; F20.9 Schizophrenia, unspecified; Z87.891 Personal history of nicotine dependence; E86.0 Dehydration; I95.9 Hypotension, unspecified; E87.6 Hypokalemia; F32.9 Major depressive disorder, single episode, unspecified; R33.9 Retention of urine, unspecified; E55.9 Vitamin D deficiency, unspecified; D50.9 Iron deficiency anemia, unspecified; N35.919 Unspecified urethral stricture, male, unspecified site; N18.3 Chronic kidney disease, stage 3 (moderate); I12.9 Hypertensive chronic kidney disease with stage 1 through stage 4 chronic kidney disease, or unspecified chronic kidney disease
CPT/HCPCS: 0097U; 36415; 71046; 76770; 76857; 80053; 80069; 80202; 82306; 82607; 82728; 82746; 83540; 83550; 83605; 83735; 83993; 84630; 85014; 85018; 85025; 85610; 85730; 86038; 86140; 86317; 86480; 86663; 86664; 86665; 86701; 86702; 86704; 86708; 86735; 86762; 86765; 86787; 86803; 86850; 86900; 86901; 87040; 87340; 88305; 96361; 96365; 96368; 96375; 97110; 97161; 99285-25; J2250; J2405; J2543; J2704; J2916; J2920; J3010; J3370; J3480; J7030; J7050; J7120; J7512; P9046; Q0163

== ENCOUNTER 2019-06-22 01:57 | Day surgery (SDC) | payer OTHER ==
[~2019-06-22 01:57] MED LIST changes: +ASCO500 PO; +Augmentin 875-1 EACH PO; +ERGO50000 PO; +FAMO40 PO; +FERSU300 PO; +GAVILAX17 GM PO; +PRED20 PO; +Percocet 5-3251 EACH PO; +TAMS.4ER PO
[2019-06-22] MEDS ORDERED: INFLECTRA100 MG IV (09:43)
--- NOTE | 2019-06-22 12:23 | NUR ---
IV INFILTRATION NOTED WHEN D/CING THE IV. SKIN TIGHT AROUND MEDIAL ELBOW. NOTIFIED DR. CATALAN, NO FURTHER ORDERS GIVEN, STATES THAT MED SHOULD BE ABSORBED SLOWLY AND THAT PT SHOULD RETURN FOR NEXT INFUSION AT THE APPOINTED TIME. R ELBOW WAS WRAPPED WITH JUSTYNA WRAP WITH WARM COMPRESS. WRITTEN AND VERBAL INSTRUCTIONS WERE GIVEN. PT VERBALIZED UNDERSTANDING.
== END 2019-06-22 11:50 | disposition home or self-care (01) ==
LOC: ATC 01:57
DX: K50.10 Crohn's disease of large intestine without complications (principal); F17.210 Nicotine dependence, cigarettes, uncomplicated; D50.9 Iron deficiency anemia, unspecified; E55.9 Vitamin D deficiency, unspecified; R25.1 Tremor, unspecified; Z79.899 Other long term (current) drug therapy
CPT/HCPCS: 96375; 96413; 96415; A9270; J1720; J7050; Q0163; Q5103

== ENCOUNTER 2019-07-06 00:55 | Day surgery (SDC) | payer OTHER ==
[~2019-07-06 00:55] MED LIST changes: +INFLECTRA100 MG IV
== END 2019-07-06 11:59 | disposition home or self-care (01) ==
LOC: ATC 00:55
DX: K50.10 Crohn's disease of large intestine without complications (principal); F32.9 Major depressive disorder, single episode, unspecified; F17.210 Nicotine dependence, cigarettes, uncomplicated; D50.9 Iron deficiency anemia, unspecified; E55.9 Vitamin D deficiency, unspecified; J44.9 Chronic obstructive pulmonary disease, unspecified; Z79.899 Other long term (current) drug therapy
CPT/HCPCS: 96375; 96413; 96415; A9270; J1720; J1745; J7050; Q5103

== ENCOUNTER 2020-02-25 00:12 | Day surgery (SDC) | payer OTHER ==
[~2020-02-25 00:12] MED LIST changes: +AZAT50 PO
== END 2020-02-25 11:43 | disposition home or self-care (01) ==
LOC: ATC 00:12
DX: K50.118 Crohn's disease of large intestine with other complication (principal); D50.9 Iron deficiency anemia, unspecified; E55.9 Vitamin D deficiency, unspecified; R25.1 Tremor, unspecified; Z88.1 Allergy status to other antibiotic agents; Z79.899 Other long term (current) drug therapy; J44.9 Chronic obstructive pulmonary disease, unspecified
CPT/HCPCS: 96413; 96415; J7050; Q5103

== ENCOUNTER 2020-04-30 05:37 | Day surgery (SDC) | payer OTHER ==
--- NOTE | 2020-04-30 08:17 | NUR ---
Ac called and cancelled his appointment in the [facility] today.
== END 2020-04-30 22:51 | disposition home or self-care (01) ==
LOC: ATC 05:37
DX: K50.10 Crohn's disease of large intestine without complications (principal); G89.29 Other chronic pain; M25.511 Pain in right shoulder; F17.210 Nicotine dependence, cigarettes, uncomplicated; G47.00 Insomnia, unspecified; F20.9 Schizophrenia, unspecified; F32.9 Major depressive disorder, single episode, unspecified; D50.9 Iron deficiency anemia, unspecified; D63.8 Anemia in other chronic diseases classified elsewhere; E55.9 Vitamin D deficiency, unspecified; R25.1 Tremor, unspecified; E66.3 Overweight; Z68.26 Body mass index [BMI] 26.0-26.9, adult; Z79.52 Long term (current) use of systemic steroids; Z79.899 Other long term (current) drug therapy; Z88.1 Allergy status to other antibiotic agents

== ENCOUNTER 2020-05-07 00:56 | Day surgery (SDC) | payer OTHER | END 2020-05-07 11:14 | disposition home or self-care (01) | LOC: ATC 00:56 | DX: K50.90 Crohn's disease, unspecified, without complications (principal); D50.9 Iron deficiency anemia, unspecified; D63.8 Anemia in other chronic diseases classified elsewhere; E55.9 Vitamin D deficiency, unspecified; R25.1 Tremor, unspecified; G89.29 Other chronic pain; G47.00 Insomnia, unspecified; F20.9 Schizophrenia, unspecified; F32.9 Major depressive disorder, single episode, unspecified; F17.210 Nicotine dependence, cigarettes, uncomplicated; Z88.1 Allergy status to other antibiotic agents; Z79.52 Long term (current) use of systemic steroids; Z79.899 Other long term (current) drug therapy | CPT/HCPCS: 96375; 96413; 96415; A9270; J1720; J7050; Q0163; Q5103 ==

== ENCOUNTER 2020-06-18 15:21 | Emergency (ER) | payer OTHER ==
[~2020-06-18] VITALS: Ht 182.9 cm; Wt 95.2 kg
== END 2020-06-18 16:31 | disposition home or self-care (01) ==
LOC: ER 15:21
DX: M54.5 Low back pain (principal); G89.29 Other chronic pain; Z79.899 Other long term (current) drug therapy; Z88.1 Allergy status to other antibiotic agents; Z87.891 Personal history of nicotine dependence
CPT/HCPCS: 99282

== ENCOUNTER 2020-07-21 00:18 | Day surgery (SDC) | payer OTHER ==
--- NOTE | 2020-07-21 08:59 | NUR ---
PT STATES HE HAS A SORE THROAT FOR MONTHS. I ENCOURAGED HIM TO CALL HIS PCP FOR AN APPT.
== END 2020-07-21 11:20 | disposition home or self-care (01) ==
LOC: ATC 00:18
DX: K50.90 Crohn's disease, unspecified, without complications (principal)
CPT/HCPCS: 96375; 96413; 96415; A9270; J1720; J7050; Q5103

== ENCOUNTER 2020-08-18 12:57 | Emergency (ER) | payer OTHER ==
[~2020-08-18] VITALS: Ht 182.9 cm; Wt 93.4 kg
[2020-08-18] MEDS ORDERED: Bactrim Ds Tab1 EACH PO (13:32)
== END 2020-08-18 13:42 | disposition home or self-care (01) ==
LOC: ER 12:57
DX: J02.0 Streptococcal pharyngitis (principal); Z79.899 Other long term (current) drug therapy; Z87.891 Personal history of nicotine dependence
CPT/HCPCS: 99283

== ENCOUNTER 2020-09-23 21:00 | Emergency (ER) | payer OTHER ==
[~2020-09-23] VITALS: Ht 188 cm; Wt 104.3 kg
[~2020-09-23 21:00] MED LIST changes: +Bactrim Ds Tab1 EACH PO
[2020-09-23] MEDS ORDERED: Cleocin HCl300 MG PO (22:51)
== END 2020-09-23 22:43 | disposition home or self-care (01) ==
LOC: ER 21:00
DX: Z02.89 Encounter for other administrative examinations (principal); R45.6 Violent behavior; S81.851A Open bite, right lower leg, initial encounter; I10 Essential (primary) hypertension; Z79.899 Other long term (current) drug therapy; Z88.1 Allergy status to other antibiotic agents; Z87.891 Personal history of nicotine dependence; W54.0XXA Bitten by dog, initial encounter
CPT/HCPCS: 12005; 90471; 90714; 96365-59; 99283-25; J1790; J2250; J3490

== ENCOUNTER 2020-09-29 08:40 | Day surgery (SDC) | payer OTHER ==
[~2020-09-29] VITALS: Wt 94.2 kg
[~2020-09-29 08:40] MED LIST changes: +Cleocin HCl300 MG PO
[2020-09-29] MEDS ORDERED: AMOCLA875 PO (17:38)
[2020-09-29] MEDS ORDERED: Norco 5-325 Ta1 EACH PO (17:38)
== END 2020-09-29 16:55 | disposition home or self-care (01) ==
LOC: ATC 08:40
DX: K50.918 Crohn's disease, unspecified, with other complication (principal); J44.9 Chronic obstructive pulmonary disease, unspecified; Z88.1 Allergy status to other antibiotic agents
CPT/HCPCS: 96375; 96413; 96415; A9270; J1720; J7040; Q5103

== ENCOUNTER 2020-09-29 17:18 | Emergency (ER) | payer OTHER ==
[~2020-09-29] VITALS: Ht 182.9 cm; Wt 93.9 kg
[2020-09-29] MEDS ORDERED: Norco 5-325 Ta1 EACH PO (17:38)
[2020-09-29] MEDS ORDERED: AMOCLA875 PO (17:38)
== END 2020-09-29 17:42 | disposition home or self-care (01) ==
LOC: ER 17:18
DX: S51.852D Open bite of left forearm, subsequent encounter (principal); S61.451D Open bite of right hand, subsequent encounter; S81.851D Open bite, right lower leg, subsequent encounter; Z87.891 Personal history of nicotine dependence; W54.0XXD Bitten by dog, subsequent encounter
CPT/HCPCS: 99282

== ENCOUNTER 2020-10-06 18:11 | Emergency (ER) | payer OTHER ==
[~2020-10-06] VITALS: Ht 182.9 cm; Wt 95.2 kg
[~2020-10-06 18:11] MED LIST changes: +AMOCLA875 PO; +Norco 5-325 Ta1 EACH PO
[2020-10-06 19:15] LABS: BASOPHILS ABSOLUTE AUTO 0.02 K/mm3 (0.00-0.23); BASOPHILS PERCENT AUTO 0 % (0-2); EOSINOPHILS ABSOLUTE AUTO 0.06 K/mm3 (0.00-0.68); EOSINOPHILS PERCENT AUTO 0 % (0-6); Hematocrit 38.9 % (37.0-53.0); Hemoglobin 13.3 g/dL (13.5-17.5); IMMATURE GRAN ABSOLUTE AUTO 0.06 K/mm3 (0.00-0.10); IMMATURE GRAN PERCENT AUTO 0 % (0-1); LYMPHOCYTES ABSOLUTE AUTO 1.36 K/mm3 (0.84-5.20); LYMPHOCYTES PERCENT AUTO 10 % (21-46); MONOCYTES ABSOLUTE AUTO 0.77 K/mm3 (0.16-1.47); MONOCYTES PERCENT AUTO 6 % (4-13); Mean Corpuscular HGB 31.4 pg (26.0-34.0); Mean Corpuscular HGB Conc 34.2 g/dL (31.5-36.5); Mean Corpuscular Volume 92 fL (80-100); Mean Platelet Volume 9.6 fL (9.1-12.4); NEUTROPHILS ABSOLUTE AUTO 11.63 K/mm3 (1.96-9.15); NEUTROPHILS PERCENT AUTO 84 % (41-73); Platelet Count 213 K/mm3 (150-400); RDW Coefficient Variation 12.9 % (11.7-14.2); RDW Standard Deviation 43.4 fL (35.1-46.3); Red Blood Cell Count 4.23 M/mm3 (4.30-5.90)
[2020-10-06 19:36] LABS: Alanine Aminotransfer (ALT/SGP 69 U/L (12-78); Albumin, Blood 3.4 g/dL (3.4-5.0); Albumin/Globulin Ratio 0.8 (0.8-1.8); Alk Phos 145 U/L (50-136); Anion Gap 10 mmol/L (6-16); Aspartate Aminotrans (AST/SGOT 72 U/L (12-37); Bilirubin, Total 0.4 mg/dL (0.1-1.0); Blood Urea Nitrogen 20 mg/dL (8-24); Bun/Creatinine Ratio 17.5 (12.0-20.0); CO2, Blood 19 mmol/L (21-32); Calcium, Blood 8.7 mg/dL (8.5-10.1); Chloride, Blood 106 mmol/L (98-108); Creatinine, Blood 1.14 mg/dL (0.60-1.20); Globulin, Blood 4.3 g/dL (2.2-4.0); Glomerular Filtration Rate >60 (60-); Glucose, Blood 102 mg/dL (70-99); Potassium, Blood 3.9 mmol/L (3.5-5.5); Sodium, Blood 135 mmol/L (136-145); Total Protein, Blood 7.7 g/dL (6.4-8.2)
== END 2020-10-06 19:49 | disposition left against medical advice (07) ==
LOC: ER 18:11
PROVIDERS: Physician Assistant
DX: K92.1 Melena (principal); Z53.21 Procedure and treatment not carried out due to patient leaving prior to being seen by health care provider; Z79.899 Other long term (current) drug therapy
CPT/HCPCS: 80053; 85025; 86850; 86900; 86901; 99283

== ENCOUNTER 2020-10-17 09:42 | Emergency (ER) | payer OTHER ==
[~2020-10-17] VITALS: Ht 182.9 cm; Wt 90.7 kg
== END 2020-10-17 10:31 | disposition home or self-care (01) ==
LOC: ER 09:42
DX: S61.451D Open bite of right hand, subsequent encounter (principal); I10 Essential (primary) hypertension; Z79.899 Other long term (current) drug therapy; Z87.891 Personal history of nicotine dependence; W54.0XXD Bitten by dog, subsequent encounter
CPT/HCPCS: 99282

== ENCOUNTER 2020-12-17 01:55 | Day surgery (SDC) | payer OTHER | END 2020-12-17 11:43 | disposition home or self-care (01) | LOC: ATC 01:55 | DX: K50.10 Crohn's disease of large intestine without complications (principal); F17.210 Nicotine dependence, cigarettes, uncomplicated | CPT/HCPCS: 96375; 96413; 96415; A9270; J1720; J7040; Q5103 ==

== ENCOUNTER 2022-03-06 20:05 | Emergency (ER) | payer SELFPAY ==
[~2022-03-06] VITALS: Ht 185.4 cm; Wt 113.4 kg
[2022-03-06 20:26] LABS: BASOPHILS ABSOLUTE AUTO 0.07 K/mm3 (0.00-0.23); BASOPHILS PERCENT AUTO 0 % (0-2); EOSINOPHILS ABSOLUTE AUTO 0.16 K/mm3 (0.00-0.68); EOSINOPHILS PERCENT AUTO 1 % (0-6); Hematocrit 33.2 % (37.0-53.0); Hemoglobin 11.4 g/dL (13.5-17.5); IMMATURE GRAN ABSOLUTE AUTO 0.21 K/mm3 (0.00-0.10); IMMATURE GRAN PERCENT AUTO 1 % (0-1); LYMPHOCYTES PERCENT AUTO 8 % (21-46); MONOCYTES ABSOLUTE AUTO 1.38 K/mm3 (0.16-1.47); MONOCYTES PERCENT AUTO 5 % (4-13); Mean Corpuscular HGB 31.4 pg (26.0-34.0); Mean Corpuscular HGB Conc 34.3 g/dL (31.5-36.5); Mean Corpuscular Volume 92 fL (80-100); Mean Platelet Volume 9.6 fL (9.1-12.4); NEUTROPHILS PERCENT AUTO 85 % (41-73); Platelet Count 309 K/mm3 (150-400); RDW Coefficient Variation 12.7 % (11.7-14.2); Red Blood Cell Count 3.63 M/mm3 (4.30-5.90); White Blood Cell Count 26.72 K/mm3 (4.00-11.30)
[2022-03-06 20:45] LABS: Albumin, Blood 3.7 g/dL (3.4-5.0); Albumin/Globulin Ratio 1.2 (0.8-1.8); Bilirubin, Total 0.3 mg/dL (0.1-1.0); Creatinine, Blood 1.4 mg/dL (0.60-1.20); Globulin, Blood 3.1 g/dL (2.2-4.0); Potassium, Blood 3.2 mmol/L (3.5-5.5); Total Protein, Blood 6.8 g/dL (6.4-8.2)
[2022-03-06 20:46] LABS: International Normalized Ratio 1.02; Prothrombin Time Results 10.7 Sec (9.7-11.5)
== END 2022-03-06 22:03 | disposition short-term general hospital (02) ==
LOC: ER 20:05
PROVIDERS: Student in an Organized Health Care Education/Training Program
DX: S36.116A Major laceration of liver, initial encounter (principal); S37.061A Major laceration of right kidney, initial encounter; S22.31XA Fracture of one rib, right side, initial encounter for closed fracture; S27.2XXA Traumatic hemopneumothorax, initial encounter; X95.9XXA Assault by unspecified firearm discharge, initial encounter
CPT/HCPCS: 32551; 36430; 51702; 51703; 71045; 71260; 74177; 80053; 83690; 85025; 85610; 86850; 86900; 86901; 86923; 96374-59; 96375-59; 96376-59; 99291-25; 99292; G0390; G0480; J2060; J3010; J7030; P9016; Q9967

== ENCOUNTER 2023-01-01 23:40 | Emergency (ER) | payer OTHER ==
[~2023-01-01] VITALS: Ht 172.7 cm; Wt 72.6 kg
[2023-01-01 23:40] VITALS: BP 138/105
[~2023-01-01 23:40] MED LIST changes: +CEPH500 PO
[2023-01-02 00:37] LABS: BASOPHILS ABSOLUTE AUTO 0.06 K/mm3 (0.00-0.23); BASOPHILS PERCENT AUTO 1 % (0-2); EOSINOPHILS ABSOLUTE AUTO 0.03 K/mm3 (0.00-0.68); EOSINOPHILS PERCENT AUTO 0 % (0-6); Hematocrit 35.3 % (37.0-53.0); Hemoglobin 12.2 g/dL (13.5-17.5); IMMATURE GRAN ABSOLUTE AUTO 0.03 K/mm3 (0.00-0.10); IMMATURE GRAN PERCENT AUTO 0 % (0-1); LYMPHOCYTES ABSOLUTE AUTO 1.25 K/mm3 (0.84-5.20); LYMPHOCYTES PERCENT AUTO 10 % (21-46); MONOCYTES ABSOLUTE AUTO 1.11 K/mm3 (0.16-1.47); MONOCYTES PERCENT AUTO 9 % (4-13); Mean Corpuscular HGB 29.9 pg (26.0-34.0); Mean Corpuscular HGB Conc 34.6 g/dL (31.5-36.5); Mean Corpuscular Volume 87 fL (80-100); Mean Platelet Volume 9.8 fL (9.1-12.4); NEUTROPHILS ABSOLUTE AUTO 9.51 K/mm3 (1.96-9.15); NEUTROPHILS PERCENT AUTO 79 % (41-73); Platelet Count 244 K/mm3 (150-400); RDW Coefficient Variation 13.3 % (11.7-14.2); RDW Standard Deviation 41.8 fL (35.1-46.3); Red Blood Cell Count 4.08 M/mm3 (4.30-5.90); White Blood Cell Count 11.99 K/mm3 (4.00-11.30)
[2023-01-02 00:53] LABS: International Normalized Ratio 0.98; Prothrombin Time Results 10.3 Sec (9.7-11.5)
[2023-01-02 00:55] LABS: Albumin, Blood 3.7 g/dL (3.4-5.0); Albumin/Globulin Ratio 1.1 (0.8-1.8); Bilirubin, Total 0.4 mg/dL (0.1-1.0); Bun/Creatinine Ratio 15.7 (12.0-20.0); Calcium, Blood 8.7 mg/dL (8.5-10.1); Creatinine, Blood 1.02 mg/dL (0.60-1.20); Globulin, Blood 3.4 g/dL (2.2-4.0); Potassium, Blood 3.6 mmol/L (3.5-5.5); Total Protein, Blood 7.1 g/dL (6.4-8.2)
[2023-01-02] MEDS ORDERED: CEPH500 PO (01:24)
== END 2023-01-02 02:30 | disposition home or self-care (01) ==
LOC: ER 23:40
PROVIDERS: Emergency Medicine
DX: S02.40FA Zygomatic fracture, left side, initial encounter for closed fracture (principal); S02.842A Fracture of lateral orbital wall, left side, initial encounter for closed fracture; S02.40DA Maxillary fracture, left side, initial encounter for closed fracture; S61.512A Laceration without foreign body of left wrist, initial encounter; S01.412A Laceration without foreign body of left cheek and temporomandibular area, initial encounter; S01.81XA Laceration without foreign body of other part of head, initial encounter; S40.212A Abrasion of left shoulder, initial encounter; S80.212A Abrasion, left knee, initial encounter; S60.311A Abrasion of right thumb, initial encounter; I10 Essential (primary) hypertension; Z23 Encounter for immunization; Z87.19 Personal history of other diseases of the digestive system; Z87.891 Personal history of nicotine dependence; V29.99XA Rider (driver) (passenger) of other motorcycle injured in unspecified traffic accident, initial encounter; V29.408A Other motorcycle driver injured in collision with unspecified motor vehicles in traffic accident, initial encounter
CPT/HCPCS: 12011; 70450; 71045; 72125; 72170; 73030; 80053; 85025; 85610; 85730; 86850; 86900; 86901; 90471; 90714; 90715; 99284-25; A9270